=== PATIENT | female | born 1950 | race Caucasian/White ===

== ENCOUNTER 2016-04-22 12:12 | Inpatient (IN) | payer OTHER ==
[2016-04-21 12:43] VITALS: BMI 20.2
[2016-04-22] VITALS (20 sets, daily range): BP systolic 102–149; BP diastolic 53–77; PULSE 61–92; RESP 15–20; Ht 144.8 cm; Wt 60.1 kg
[~2016-04-22] VITALS: Ht 144.8 cm; Wt 60.1 kg
[~2016-04-22 12:12] MED LIST: CEFAZOLIN 1 GM INJ ONE; metroNIDAZOLE 500 MG/100 ML NS IVPB ONE
[2016-04-22] MEDS ORDERED: metroNIDAZOLE 500 MG/NS (PMX) 100 ML IVPB ONE (13:00)
[2016-04-22] MEDS ORDERED: CEFAZOLIN 2 GM/50 ML (PMX) 50 ML IVPB ONE (13:00)
[2016-04-22] MEDS ORDERED: D5-NS + KCL 20 MEQ 1,000 ML IV ONE (13:00)
[2016-04-22] MEDS ORDERED: DOXY25TA PO (14:10)
[2016-04-22] MEDS ORDERED: MIDAZOLAM 1 MG/ML 2 ML INJ ONE (15:13)
--- NOTE | 2016-04-22 15:28 | HP ---
Date/Time of Note Date/Time of Note DATE: 04/22/16 TIME: 15:27 Assessment/Plan VTE Prophylaxis VTE Prophylaxis Intervention: SCD's Lines/Catheters IV C[facility]ter Type [facility]from [facility] Saline Lock HPI/ROS Admit Date/Time Admit Date/Time Apr 22, 2016 at 13:04 Hx of Present Illness Abdiel Ding M.D. [facility] History and Physical Examination Leslie Andrews Apr 21, 2016 Age:65 :1950 Physicians: Vehicle Service Attendant Potato Pancake Frier Oncologist Referring MD: History of the Present Illness: This is a 65 female G3 P 2 Ab 1 with a grade 3 endometrial cancer recently diagnosed by d/c endometrial biopsy. The patient also had fibroids Medical history/ROS: all other systems unremarkable. Surgical history: none Medications: None Flu no, declined, Pneumococcal no, declined Colonoscopy: never Allergies: 03/30/16 No known allergies (situation) Family History: Noncontributory Social History: Noncontributory Review of Systems: Negative except for above noted Physical Examination Vitals (03/30/2016): Weight 138, Height 58.5, BP 130/70, BMI 28.8. General: Alert. HEENT: Pupils are equal, round, reactive to light and accommodation. Neck: Supple with no masses of lymphadenopathy. Breast: Deferred due to recent examination and responsibility of primary care physician. Chest: Clear to auscultation and percussion with no rales, ronchi, or wheeze. Heart: Normal rhythm with no murmur. Abdominal exam: nontender, nondistended, no masses, no ascites. location: N/A Pelvic exam: Uterus enlgd and globular, no masses or cul-de-sac nodularity noted Rectal: confirmatory with pelvic exam. Neurological: Grossly intact Assessment: endomtrial cancer stage to be determined Plan: TLH/BSO LND possible lapartotomy. All risks and benefits of this procedure have been discussed in detail with the patient, as well as alternative treatment strategies and their implications. The patient is aware that there is some possibility of a blood transfusion and its associated risks and benefits. She wishes to proceed and gives her informed consent. Abdiel Ding M.D. PMH/Family/Social Social History Smoking Status: Never smoker Exam/Review of Systems Vital Signs Vitals Vital Signs Date Time Temp Pulse Resp B/P Pulse Ox O2 Delivery O2 Flow Rate FiO2 04/22/16 13:56 98.2 71 16 149/77 95 Room Air Medications Medications Current Medications Potassium Chloride/Dextrose/ Sod Cl (D5-NS + KCl 20 Meq) 1,000 ml @ 100 mls/hr Q10H ONCE IV ; Start 04/22/16 at 13:00; Stop 04/22/16 at 22:59 ABDIEL DING MD Apr 22, 2016 15:28
--- NOTE | 2016-04-22 15:29 | HPN ---
Date/Time of Note Date/Time of Note DATE: 04/22/16 TIME: 15:28 Interval H&P Admission Note Pt. seen H&P reviewed: No system changes ZAINA DING MD Apr 22, 2016 15:28
[2016-04-22] MEDS ORDERED: PROPOFOL 100 ML ONE (15:31)
[2016-04-22] MEDS ORDERED: ROCURONIUM 50 MG INJ ONE ×2 (15:31→18:00)
[2016-04-22] MEDS ORDERED: FENTAnyl 50 MCG/ML VIAL ONE (15:32)
[2016-04-22] MEDS ORDERED: ROPIVACAINE 0.5 % 30 ML VIAL ONE (15:50)
[2016-04-22] MEDS ORDERED: morphine SULFATE/PF (10 MG/10 ML) INJ ONE (15:50)
[2016-04-22] MEDS ORDERED: PHENYLephrine (100 MCG/ML) 5ML SYG ONE ×2 (15:59→17:03)
[2016-04-22] MEDS ORDERED: METHYLENE BLUE 10 MG/ML VIAL ONE (16:28)
[2016-04-22] MEDS ORDERED: THROMBIN 5000 UNIT VIAL ONE (16:28)
[2016-04-22] MEDS ORDERED: HYDROmorphONE (0.2 MG/ML) 10ML SYG IV PRN ×2 (16:30)
[2016-04-22] MEDS ORDERED: NALBUPHINE HCL (10 MG/1 ML) INJ IV PRN (16:30)
[2016-04-22] MEDS ORDERED: ONDANSETRON 4 MG INJ IV PRN ×2 (16:30)
[2016-04-22] MEDS ORDERED: NALOXONE (0.4 MG/ML) INJ IV PRN (16:30)
[2016-04-22] MEDS ORDERED: morphine (1 MG/ML) 10ML SYRINGE IV PRN ×2 (16:30)
[2016-04-22] MEDS ORDERED: METOCLOPRAMIDE 10 MG INJ IV PRN (16:30)
[2016-04-22] MEDS ORDERED: ALBUMIN HUMAN 5% 250 ML IV PRN (16:30)
[2016-04-22] MEDS ORDERED: EPHEDrine SULFATE 50 MG/5 ML SYG IV PRN (16:30)
[2016-04-22] MEDS ORDERED: MEPERIDINE 25 MG INJ IV PRN (16:30)
[2016-04-22] MEDS ORDERED: DIPHENHYDRAMINE 50 MG INJ IV PRN (16:30)
[2016-04-22] MEDS ORDERED: FENTAnyl 50 MCG/ML VIAL IV PRN ×2 (16:30)
[2016-04-22] MEDS ORDERED: DEXAMETHASONE 4 MG/ML 1 ML INJ ONE (17:58)
[2016-04-22] MEDS ORDERED: METOCLOPRAMIDE 10 MG INJ ONE (17:58)
[2016-04-22] MEDS ORDERED: ONDANSETRON 4 MG INJ ONE (17:58)
[2016-04-22] MEDS ORDERED: NEOSTIGMINE 3 MG/3 ML SYRINGE ONE (18:39)
[2016-04-22] MEDS ORDERED: GLYCOPYRROLATE 0.4 MG INJ ONE (18:39)
[2016-04-22] MEDS ORDERED: HETASTARCH 6% NACL 500 ML ONE (18:41)
[2016-04-22] MEDS ORDERED: morphine 2 MG INJ IV PRN (20:30)
[2016-04-22] MEDS: D5-LR + KCL 20 MEQ 1,000 ML IV SCH (22:22)
[2016-04-22] MEDS: CEFAZOLIN 1 GM/50 ML (PMX) 50 ML IVPB SCH (23:58)
[2016-04-23 00:05] VITALS: BP 119/55; PULSE 73; RESP 18
[2016-04-23 05:00] VITALS: BP 105/57; PULSE 75; RESP 17
[2016-04-23 05:12] LABS: ADD SCAN DIFF NO
[2016-04-23 05:28] LABS: HEMATOCRIT 31.2 % (37.0-47.0); HEMOGLOBIN 9.7 g/dl (12.0-16.0); LYMPHOCYTES # 0.7 10^3/ul (0.8-2.9); LYMPHOCYTES % 5.8 % (15.0-51.0); MEAN CORPUSCULAR HEMOGLOBIN 27.6 pg (29.0-33.0); MEAN CORPUSCULAR HGB CONC 31.1 g/dl (32.0-37.0); MEAN CORPUSCULAR VOLUME 88.6 fl (82.0-101.0); MONOCYTE # 0.7 10^3/ul (0.3-0.9); MONOCYTES % 5.8 % (0.0-11.0); NEUTROPHIL # 10.4 10^3/ul (1.6-7.5); NEUTROPHILS % 88.1 % (39.0-77.0); PLATELET COUNT 270 10^3/UL (140-415); RED BLOOD COUNT 3.52 10^6/ul (4.20-5.40); RED CELL DISTRIBUTION WIDTH 13.2 % (11.5-14.5); WHITE BLOOD COUNT 11.8 10^3/ul (4.8-10.8)
[2016-04-23 05:35] LABS: POTASSIUM 4.3 mmol/L (3.5-5.1)
[2016-04-23 05:37] LABS: CREATININE 0.62 mg/dl (0.44-1.00)
[2016-04-23 05:38] LABS: CALCIUM 7.7 mg/dl (8.4-10.2)
[2016-04-23 07:53] VITALS: BP 108/59; RESP 18
[2016-04-23] MEDS: D5-LR + KCL 20 MEQ 1,000 ML IV SCH ×2 (08:00→08:39)
[2016-04-23] MEDS: CEFAZOLIN 1 GM/50 ML (PMX) 50 ML IVPB SCH ×2 (08:34→16:07)
[2016-04-23] MEDS: ONDANSETRON 4 MG INJ IV PRN ×2 (08:39→17:23)
[2016-04-23] MEDS: DIPHENHYDRAMINE 50 MG INJ IV PRN ×2 (08:39→13:38)
--- NOTE | 2016-04-23 11:47 | CONS ---
DATE OF ADMISSION: 04/22/2016 DATE OF CONSULTATION: 04/23/2016 REQUESTING PHYSICIAN: Abdiel Miller MD REASON FOR CONSULTATION: Medical management. HISTORY OF PRESENT ILLNESS: This is a 65-year-old G3, P2, 1, with a grade III endometrial cancer, recent diagnosed by endometrial biopsy. The patient was also found with fibroids. The maría elena ent has been seen and evaluated at [facility] by Dr. Miller, and the mode of treatment was discussed with the patient and after discussing surgical intervention, th e patient had decided to proceed with surgical intervention. Therefore, on 04/22/2016, after discus sing the risks and benefits of the surgery, the patient was taken to OR for laparoscopic salpingo-oo phorectomy and total hysterectomy. The patient tolerated the procedure well and was taken to recove ry room. Medical team was consulted for further management. The patient during the surgery was rob ated with dexamethasone, Dilaudid, and postop patient was treated with cefazolin. At this time, the patient denies having any fever, chills, weight gain, weight loss, anorexia. No chest pain, palpit ations, edema, orthopnea. No change in visual acuity, diplopia, photophobia. Minimal abdominal dis comfort at surgical site. No recent travel history. No sick contact. The other 12-review of syste ms has been found to be negative. PAST MEDICAL HISTORY: 1. Insomnia. 2. Uterine fibroid. 3. Grade III endometrial cancer diagnosed with endometrial biopsy. PAST SURGICAL HISTORY: None. MEDICATIONS: None. FAMILY HISTORY: No family history of cancer, diabetes mellitus or hypertension. SOCIAL HISTORY: Negative x3 for smoking, alcohol, illicit drugs. REVIEW OF SYSTEMS: As above per HPI, otherwise 12-review of systems has been found to be negative. PHYSICAL EXAMINATION: VITAL SIGNS: Temperature 98.1, pulse 69, respirations 18, blood pressure 108/59, oxygen 100% in shona m air. GENERAL APPEARANCE: The patient is lying in bed comfortably without any distress. She is awake, al ert, oriented. She is able to answer my questions properly. Body habitus moderately overweight wit h BMI of 28.7. EYES AND ENT: Conjunctivae and lids are normal. Pupils are normal. Extraocular normal. Hearing g rossly normal. Lips, teeth and gums normal. Oral mucosa mildly dry. NECK: Supple. Trachea midline. No lymphadenopathy. RESPIRATORY: Effort is normal. Clear to auscultation bilaterally. CARDIOVASCULAR: Normal S1, S2. Regular rhythm and rate. No murmur, no bruits, no edema. Peripher al pulses, radial pulses palpable. Capillary refill is normal. CHEST: Normal expansion of thorax during inspiration. ABDOMEN: Soft, nontender. Surgical site is dry and clean. No drain. No evidence of hematoma or b leeding. GENITOURINARY: Deferred. MUSCULOSKELETAL: Upper and lower extremities within normal limits. Full range of motion. Strength 5/5 in both upper and lower extremities. NEUROLOGIC: Cranial nerves II through XII are grossly intact. PSYCHIATRIC: Normal judgment and insight. Alert and oriented x3. Mood and affect is normal. LABORATORY DATA: WBC 11.8, hemoglobin 9.7, hematocrit 31.2, platelets 270. Sodium 141, potassium 4 .3, chloride 108, bicarbonate 27, BUN 11, creatinine 0.62, glucose 151, calcium 7.7. ASSESSMENT AND PLAN: 1. Grade III endometrial cancer. The patient is status post laparoscopic total hysterectomy and bi lateral salpingo-oophorectomy by Dr. Miller. We will followup the pathology. Continue pain medic ation. Continue cefazolin. Diet to be advanced as per his recommendation. PT, OT evaluate and rob at. 2. Leukocytosis, likely postoperative, reactive. Continue cefazolin. 3. Deep venous thrombosis prophylaxis, on sequential compression devices. We will continue to monitor patient closely. Further recommendations, management and treatment as p er clinical course. Total amount of time was spent for evaluation of patient and consultation note 40 minutes. Dictated By: SHARATH ARCINIEGA MD PN/NTS Conf#: [id number] DID#: [id number]
[2016-04-23] MEDS: traMADol 50 MG TAB PO PRN ×2 (13:39→21:12)
[2016-04-23 19:48] VITALS: BP 129/65; RESP 18
--- NOTE | 2016-04-23 21:52 | OPR ---
Date/Time of Note Date/Time of Note DATE: 04/23/16 TIME: 21:51 Operative Report Free Text/Dictation 4 OPERATIVE REPORT [facility] Name: Leslie Andrews Medical Date: 04/22/16 Preoperative Diagnosis: 1-Endometrial cancer grade 3 Postoperative Diagnosis: 1-Endometrial cancer with final pathology pending 2- Fibroid 3- Ureteral stricture Procedures: 1- Total laparoscopic hysterectomy with bilateral salpingoophorectomy 2- Bilateral ureteral dissection with repositioning 3- Laparoscopic pelvic and aortic lymph node dissection 4- Retroperitoneal uterine artery ligation adjacent to hypogastric artery Surgeon: Dr. Ding [employer] Control Room Operator: Dr. Bateman Anaesthesia: General with regional Indications for Procedure: This 65- year old patient had a grade 3 endometrial cancer without evidence of metastatic disease preoperatively and after discussions of options with risks and benefits it was determined that a laparoscopic hysterectomy with bilateral salpingoophorectomy and pelvic/aortic lymph node dissection would be completed for the purposes of treatment and possibly planning additional adjuvant therapy. The pelvic and LND was performed in lieu of final grading not being equivalent to preoperative D&C grade 18-25% of the time and frozen section not being more that 80% reliable in determining grade and depth of invasion; therefore complete staging is performed to Name: Leslie Andrews Medical determine postoperative management unless there is a significant contraindication. Intraoperative Findings and Summary of Procedure: After placing the Trocars and exploration we noted uterine enlargement with a large posterior lower uterine segment fibroid, with significant adhesions of the adnexia to the sidewalls. The TLH/BSO was then performed without incident but required a ureteral dissection due to anatomic issues of the fibroid and adnexia adherent to the sidewalls and uterine enlargement due to fibroid with retroperitoneal uterine artery ligation adjacent to hypogastric artery for required hemostasis, with the laparoscopic LND being subsequently performed with a finding of grossly negative nodes pathology pending. The patient will stay a minimum of one night to observe for recovery of from anesthesia and confirm stable hemoglobin and hematocrit with the necessity of confirmation of some GI recovery and probably need an addition night as well. Findings and Procedure: After being prepped and draped in the usual manner an EEA sizer and pneumo- occluder was inserted vaginally. A 5-millimeter trocar was then placed periumbilically without incident. Subsequently, we insufflated and placed two 12- millimeter trocars laterally and a 12-millimeter trocar suprapubically, as well as an additional 5-mm trocar cephlad to the umbilicus. At this time multiple pelvic adhesions were lysed with sharp dissection and the Omni if not adjacent to serosa. Subsequently we explored and noted a large uterus with a significant posterior lower uterine segment myoma, with adnexia adherent to the sidewalls due to apparent inflammation and old scar tissue. Initially the right round ligament was cauterized and transected with the Thunderbeat and the retroperitoneal space further opened parallel to the IP ligament an laterally with the same devise. The right ureter was identified and due to the aforementioned distortion from adherent adnexia and the myoma, was dissected laterally with the Omni and the endo-dissector. After lateralizing the ureter the uterine artery was identified and clipped Name: Leslie [facility] adjacent to the hypogastric artery due to the uterine enlargement and hypervascularity lateral to the ureter. Hence, a space was developed the broad ligament and the right IP ligament was cauterized and transected with a Thunderbeat after which the uterus was retracted medially and the bladder flap was partly developed with the Gyrus bipolar cutting forceps and the Omni. We then used a 10-mm ratcheted endo-grasper placed through the 12-mm suprapubic trocar to manipulate the uterus and with the EEA sizer uterus was retracted and left round ligament was cauterized and transected with the Thunderbeat and the retroperitoneal space further opened parallel to the IP ligament an laterally with the same devise. The left ureter was identified and due to the aforementioned distortion was dissected laterally with the Omni and the endo- dissector as done contralaterally. After lateralizing with the Thunderbeat adjacent to the hypogastric artery due to the uterine enlargement and hypervascularity lateral to the ureter. Hence, a space was developed in the broad ligament and the left IP ligament was cauterized and transected with a Thunderbeat after which the uterus was retracted medially, allowing development or the bladder flap uneventfully with a Thunderbeat and blunt dissection. Subsequently, the right uterine artery was transected with a Thunderbeat perpendicular to the distal lower uterine segment and the Cardinal ligament and utero-sacral ligament were both transected with an Omni and Thunderbeat parallel to the lower uterine segment and cervix. An identical series of steps were taken on the left side. The anterior and posterior colpotomies were accomplished with a Thunderbeat anteriorly and posteriorly, and continued around the sides as the specimen was removed through the vagina uneventfully. The vagina was closed with interrupted 0 Vicryl suture and continuous 2-0 v- lock suture. At this time the frozen section returned grade 2-3 uncertain depth of invasion < 50% and the pelvic and aortic LND were completed after confirming hemostasis. Initially a fan retractor was used for exposure and secured to the James arm and all lymph node tissue adjacent to the right external iliac artery and vein, hypogastric artery and vein, as well as obturator fossa were removed with sharp and blunt dissection, using the Thunderbeat or Gyrus bipolar Omni for hemostasis and lymphostasis. The ashvin tissue was grasped and Name: [facility] subsequently placed under tractions with the Omni and the Thunderbeat then being used for the hemostasis and lymphostasis in the process of removal. The dissection was continued to include ashvin tissue adjacent to the common iliac vessels. The obturator nerve was identified and all adjacent ashvin tissue removed with blunt dissection, with the Thunderbeat or Gyrus bipolar Omni used for lymphostasis and hemostasis as needed. The fan retractors were adjusted in that a suprapubically placed fan retracted the broad ligament and ureter with ileum while the right lateral trocar was used for a fan to retract the cecum and ascending colon allowing any ashvin tissue adjacent to the vena cava, as well as aorto-caval nodes to be removed using identical technique. Singeing Torch Operator vessels were addressed with the Thunderbeat or Gyrus bipolar Omni. At this time we placed the fan retractors for contralateral exposure. Subsequently, all lymph node tissue adjacent to the left external iliac artery and vein, hypogastric artery and vein, as well as obturator fossa were removed with sharp and blunt dissection, the Thunderbeat or Gyrus bipolar Omni for hemostasis and lymphostasis, with a technique identical to the right side. The dissection was continued to include ashvin tissue adjacent to the common iliac vessels. Subsequently, the fan retractors were adjusted and any ashvin tissue adjacent to the aorta were dissected using similar technique. After irrigating and assuring hemostasis the 12 millimeter trocars were removed and the fascia was closed with 0-vicryl using an endo-close devise. The gas was removed and the skin of all sites then closed with subcutaneous 3-0 Vicryl suture an interrupted 4-0 Plain Gut . The EBL was 50cc and the patient tolerated the procedure well and left the OR in good condition. Abdiel Ding M.D. ABDIEL DING MD Apr 23, 2016 21:52
--- NOTE | 2016-04-23 21:55 | PN ---
Date/Time of Note Date/Time of Note DATE: 04/23/16 TIME: 21:52 Assessment/Plan VTE Prophylaxis VTE Prophylaxis Intervention: SCD's Lines/Catheters IV Catheter Type (from Nrs): Peripheral IV Urinary Cath still in place: Yes Assessment/Plan Chief Complaint/Hosp Course endometrial ca Problems: Assessment/Plan A- doing well P- adv diet and d/c Kirk Subjective 24 Hr Interval Summary Free Text/Dictation S- minimal pain, OOB and + flatus O- resp- clear cvs- NSR Abd- soft NT Ext- NT no edema A- doing well P- adv diet and d/c Kirk Exam/Review of Systems Vital Signs Vitals Vital Signs Date Time Temp Pulse Resp B/P Pulse Ox O2 Delivery O2 Flow Rate FiO2 04/23/16 19:48 98.6 104 18 129/65 97 04/23/16 05:00 Nasal Cannula 2.0 Intake and Output 04/22/16 04/22/16 04/23/16 15:00 23:00 07:00 Intake Total 3050 ml 1100 ml Output Total 390 ml 550 ml Balance 2660 ml 550 ml Results Result Diagram: 04/23/16 0415 04/23/16 0415 Results 24 hrs Laboratory Tests Test 04/23/16 04:15 Anion Gap 10 Basophils # 0.0 Basophils % 0.0 Blood Urea Nitrogen 11 Calcium Level 7.7 L Carbon Dioxide Level 27 Chloride Level 108 Creatinine 0.62 Eosinophils # 0.0 Eosinophils % 0.0 Glucose Level 151 Hematocrit 31.2 L Hemoglobin 9.7 L Lymphocytes # 0.7 L Lymphocytes % 5.8 L Mean Corpuscular Hemoglobin 27.6 L Mean Corpuscular Hemoglobin Concent 31.1 L Mean Corpuscular Volume 88.6 Mean Platelet Volume 10.0 Monocytes # 0.7 Monocytes % 5.8 Neutrophils # 10.4 H Neutrophils % 88.1 H Nucleated Red Blood Cells # 0.0 Nucleated Red Blood Cells % 0.0 Platelet Count 270 Potassium Level 4.3 Red Blood Count 3.52 L Red Cell Distribution Width 13.2 Sodium Level 141 White Blood Count 11.8 H Medications Medications Current Medications Diphenhydramine HCl (Benadryl) 25 mg Q4H PRN IV PRURITUS Last administered on t 13:38; Admin Dose 25 MG; Start 04/22/16 at 16:30 Nalbuphine HCl (Nubain) 10 mg Q4H PRN IV PRURITUS; Start 04/22/16 at 16:30 Naloxone HCl (Narcan) 0.2 mg Q2M PRN IV FOR RESP RATE 8 OR LESS; Start 04/22/16 at 16:30 Ondansetron HCl (Zofran Inj) 4 mg Q6H PRN IV NAUSEA AND/OR VOMITING Last administered on 04/23/16 17:23; Admin Dose 4 MG; Start 04/22/16 at 20:30 Tramadol HCl (Ultram) 50 mg Q6H PRN PO PAIN LEVEL 1-5 Last administered on 21:12; Admin Dose 50 MG; Start 04/22/16 at 20:30 Morphine Sulfate 2 mg 2 mg Q3H PRN IV PAIN LEVEL 6-10; Start 04/22/16 at 20:30 Potassium Cl/ Dextrose/Lact Ringer's (D5-Lr + KCl 20 Meq) 1,000 ml @ 60 mls/hr [id number] IV Last administered on 04/23/16 08:39; Admin Dose 60 MLS/HR; Start 04/23/16 at 08:00 ZAINA DING MD Apr 23, 2016 21:55
[2016-04-24] MEDS: D5-LR + KCL 20 MEQ 1,000 ML IV SCH ×2 (01:50→20:00)
[2016-04-24] MEDS: traMADol 50 MG TAB PO PRN ×4 (02:55→21:05)
[2016-04-24 05:48] LABS: ADD SCAN DIFF NO
[2016-04-24 05:54] LABS: BASOPHILS % 0.1 % (0.0-2.0); EOSINOPHILS % 0.2 % (0.0-7.0); HEMATOCRIT 31.3 % (37.0-47.0); HEMOGLOBIN 9.9 g/dl (12.0-16.0); LYMPHOCYTES # 1.7 10^3/ul (0.8-2.9); MEAN CORPUSCULAR HEMOGLOBIN 27.9 pg (29.0-33.0); MEAN CORPUSCULAR HGB CONC 31.6 g/dl (32.0-37.0); MEAN CORPUSCULAR VOLUME 88.2 fl (82.0-101.0); MONOCYTE # 0.9 10^3/ul (0.3-0.9); MONOCYTES % 9.3 % (0.0-11.0); NEUTROPHIL # 7.2 10^3/ul (1.6-7.5); PLATELET COUNT 263 10^3/UL (140-415); RED BLOOD COUNT 3.55 10^6/ul (4.20-5.40); RED CELL DISTRIBUTION WIDTH 13.4 % (11.5-14.5); WHITE BLOOD COUNT 9.9 10^3/ul (4.8-10.8)
[2016-04-24 06:09] LABS: POTASSIUM 3.8 mmol/L (3.5-5.1)
[2016-04-24 06:11] LABS: CREATININE 0.53 mg/dl (0.44-1.00)
[2016-04-24 06:12] LABS: CALCIUM 7.8 mg/dl (8.4-10.2); MAGNESIUM 1.9 mg/dl (1.7-2.5)
[2016-04-24 07:00] VITALS: BP 142/71; RESP 20
--- NOTE | 2016-04-24 09:40 | OPPN ---
Date/Time of Note Date/Time of Note DATE: 04/24/16 TIME: 09:39 Post-Anesthesia Notes Post-Anesthesia Note Activity: WNL Respiratory function: WNL Cardiovascular function: WNL Mental status: Baseline Pain reasonably controlled: Yes Hydration appropriate: Yes Nausea/Vomiting absent: No Pt recovered from regional: Yes DATNE MUJICA MD Apr 24, 2016 09:40
--- NOTE | 2016-04-24 11:23 | PDOCDIS ---
Discharge Instructions CONDITION Patient Condition: Stable HOME CARE INSTRUCTIONS: Diet Instructions: Regular ACTIVITY: Activity Restrictions: Slowly Increase Activity Rest between Activity No Sexual Activity Do not Drive Avoid Heavy Housework Bathing Restrictions: Tub BathActivity Restrictions Comment: Do not lift any objects > 15 lbs x 4 weeks FOLLOW UP/APPOINTMENTS Appointments Follow up with PCP in one week Follow up with Dr. Miller in 2 weeks SHARATH ARCINIEGA MD Apr 24, 2016 11:22
[2016-04-24] MEDS ORDERED: MYL80 PO (11:25)
[2016-04-24] MEDS ORDERED: DOCU-216 PO (11:25)
[2016-04-24] MEDS ORDERED: FAMO20TA18 PO (11:25)
[2016-04-24] MEDS ORDERED: TRAM50TA2 PO (11:25)
[2016-04-24] MEDS: FAMOTIDINE 20 MG TAB PO SCH (11:40)
[2016-04-24] MEDS: DOCUSATE SODIUM 100 MG CAP PO PRN (11:40)
--- NOTE | 2016-04-24 12:17 | DS ---
DATE OF ADMISSION: 04/22/2016 DATE OF DISCHARGE: 04/24/2016 ADMITTING PHYSICIAN: Abdiel Miller MD DIAGNOSES: 1. Endometrial cancer with fibroid. The patient is status post total laparoscopic hysterectomy and bilateral salpingo-oophorectomy and laparoscopic pelvic and aortic lymph node dissection. Pathology pending. Follow with Dr. Miller for the result of the pathology. 2. Ureteral stricture. The patient is status post bilateral ureteral dissection and repositioning and retroperitoneal uterine artery ligation just at the hypogastric artery. 3. Insomnia, stable. 4. Anemia, stable. MEDICATIONS: 1. Colace. 2. Sleep aid. 3. Famotidine. 4. Simethicone. 5. Tramadol. ALLERGIES: NO KNOWN DRUG ALLERGIES. DISPOSITION: Home. FOLLOWUP: Follow with Dr. Miller as outpatient. Blood culture no growth ____ urine culture. LABORATORIES: Sodium 139, potassium 3.8, chloride 104, bicarbonate 29, BUN 5, creatinine 0.53, gluc ose 106, calcium 7.8, magnesium 1.9. WBC 9.9, hemoglobin 9.9, hematocrit 31.3, platelets 263. HOSPITAL COURSE: This is a 65-year-old G3, P2, 1 with high-grade 3 endometrial cancer, rec ent diagnosis ____ biopsy, also found to have fibroid. The patient was seen and evaluated at [facility] with Dr. Miller, and after discussing the mode of treatmen t and discussing surgical intervention, the patient decided to proceed with surgical intervention on 04/22/2016. After discussing the risk and benefits of the surgery, the patient was taken to OR for laparoscopic salpingo-oophorectomy and total hysterectomy. Patient tolerated the procedure well an d was taken to recovery room. During the surgery, the patient was treated with cefazolin and was co ntinued during the course of hospitalization. The patient was admitted to oncology floor. Her diet was advanced as tolerated, was continued on IV fluid, pain medication. The surgical site is dry an d clean. The patient has been able to ambulate without any difficulty. There is no bleeding at the site of the surgery. Patient is complaining of having mild abdominal discomfort which is at the rush rgical site, but there is no bleeding at the surgical site. She has had some bloating, she was star luis a on simethicone. She has had flatus. At this time, patient is from a medical standpoint stable to be discharged home waiting for surgical evaluation by Dr. Miller prior to discharge. Dictated By: SHARATH ARCINIEGA MD PN/NTS Conf#: [id number] DID#: [id number]
[2016-04-24 14:30] VITALS: BP 157/70; PULSE 66; RESP 20
[2016-04-24 19:39] VITALS: BP 141/66; RESP 19
--- NOTE | 2016-04-24 21:24 | PN ---
Date/Time of Note Date/Time of Note DATE: 04/24/16 TIME: 21:22 Assessment/Plan VTE Prophylaxis VTE Prophylaxis Intervention: SCD's Lines/Catheters IV Catheter Type (from Nrsg): Peripheral IV Urinary Cath still in place: Yes Assessment/Plan Chief Complaint/Hosp Course endometrial ca Problems: Assessment/Plan A/P- doing reasonable but should discharge a.m. due to some gas pain and poor intake; mobilize Subjective 24 Hr Interval Summary Free Text/Dictation S- minimal pain, OOB and + flatus but some gas pains and ate minimal today O- resp- clear cvs- NSR Abd- soft NT Ext- NT no edema A/P- doing reasonable but should discharge a.m. due to some gas pain and poor intake; mobilize Exam/Review of Systems Vital Signs Vitals Vital Signs Date Time Temp Pulse Resp B/P Pulse Ox O2 Delivery O2 Flow Rate FiO2 04/24/16 19:39 98.4 73 19 141/66 100 04/24/16 14:30 Room Air 04/23/16 05:00 2.0 Intake and Output 04/23/16 04/23/16 04/24/16 14:59 22:59 06:59 Intake Total 50 ml 1650 ml 1000 ml Output Total 960 ml 1800 ml Balance 50 ml 690 ml -800 ml Results Result Diagram: 04/24/16 0418 04/24/16 0418 Results 24 hrs Laboratory Tests Test 04/24/16 04:18 Anion Gap 10 Basophils # 0.0 Basophils % 0.1 Blood Urea Nitrogen 5 L Calcium Level 7.8 L Carbon Dioxide Level 29 Chloride Level 104 Creatinine 0.53 Eosinophils # 0.0 Eosinophils % 0.2 Glucose Level 106 # Hematocrit 31.3 L Hemoglobin 9.9 L Lymphocytes # 1.7 Lymphocytes % 17.0 Magnesium Level 1.9 Mean Corpuscular Hemoglobin 27.9 L Mean Corpuscular Hemoglobin Concent 31.6 L Mean Corpuscular Volume 88.2 Mean Platelet Volume 10.0 Monocytes # 0.9 Monocytes % 9.3 Neutrophils # 7.2 Neutrophils % 73.0 Nucleated Red Blood Cells # 0.0 Nucleated Red Blood Cells % 0.0 Platelet Count 263 Potassium Level 3.8 Red Blood Count 3.55 L Red Cell Distribution Width 13.4 Sodium Level 139 White Blood Count 9.9 Medications Medications Current Medications Diphenhydramine HCl (Benadryl) 25 mg Q4H PRN IV PRURITUS Last administered on 13:38; Admin Dose 25 MG; Start 04/22/16 at 16:30 Nalbuphine HCl (Nubain) 10 mg Q4H PRN IV PRURITUS; Start 04/22/16 at 16:30 Naloxone HCl (Narcan) 0.2 mg Q2M PRN IV FOR RESP RATE 8 OR LESS; Start 04/22/16 at 16:30 Ondansetron HCl (Zofran Inj) 4 mg Q6H PRN IV NAUSEA AND/OR VOMITING Last administered on 04/23/16 17:23; Admin Dose 4 MG; Start 04/22/16 at 20:30 Tramadol HCl 50 mg 50 mg Q6H PRN PO PAIN LEVEL 1-5 Last administered on 21:05; Admin Dose 50 MG; Start 04/22/16 at 20:30 Potassium Cl/ Dextrose/Lact Ringer's (D5-Lr + KCl 20 Meq) 1,000 ml @ 50 mls/hr Q20H IV Last administered on 04/24/16 20:00; Admin Dose 50 MLS/HR; Start at 08:00 Simethicone (Mylicon) 80 mg Q6H PRN PO DISTENSION/GAS/BLOATING Last administered on 04/24/16 18:31; Admin Dose 80 MG; Start 04/24/16 at 11:30 Docusate Sodium (Colace) 100 mg DAILY PRN PO CONSTIPATION Last administered on 04/24/16 11:40; Admin Dose 100 MG; Start 04/24/16 at 11:30 Famotidine (Pepcid) 20 mg DAILY PO Last administered on 04/24/16 11:40; Admin Dose 20 MG; Start 04/24/16 at 12:00 ZAINA DING MD Apr 24, 2016 21:24
[2016-04-25] MEDS: DOCUSATE SODIUM 100 MG CAP PO PRN (02:21)
[2016-04-25 05:11] LABS: ADD SCAN DIFF NO; BASOPHILS % 0.2 % (0.0-2.0); EOSINOPHILS % 0.4 % (0.0-7.0); HEMATOCRIT 33.7 % (37.0-47.0); HEMOGLOBIN 10.6 g/dl (12.0-16.0); LYMPHOCYTES # 1.2 10^3/ul (0.8-2.9); LYMPHOCYTES % 12.2 % (15.0-51.0); MEAN CORPUSCULAR HEMOGLOBIN 27.4 pg (29.0-33.0); MEAN CORPUSCULAR HGB CONC 31.5 g/dl (32.0-37.0); MEAN CORPUSCULAR VOLUME 87.1 fl (82.0-101.0); MEAN PLATELET VOLUME 9.9 fl (7.4-10.4); MONOCYTE # 0.8 10^3/ul (0.3-0.9); MONOCYTES % 7.4 % (0.0-11.0); NEUTROPHILS % 79.2 % (39.0-77.0); PLATELET COUNT 287 10^3/UL (140-415); RED BLOOD COUNT 3.87 10^6/ul (4.20-5.40); RED CELL DISTRIBUTION WIDTH 13.1 % (11.5-14.5); WHITE BLOOD COUNT 10.1 10^3/ul (4.8-10.8)
[2016-04-25] MEDS: ONDANSETRON 4 MG INJ IV PRN ×2 (05:29)
[2016-04-25 05:31] LABS: POTASSIUM 4.4 mmol/L (3.5-5.1)
[2016-04-25 05:34] LABS: CREATININE 0.51 mg/dl (0.44-1.00)
[2016-04-25] MEDS ORDERED: CEPASTAT LOZENGE MT PRN (06:30)
[2016-04-25 08:02] VITALS: BP 137/71; RESP 20
[2016-04-25] MEDS: FAMOTIDINE 20 MG TAB PO SCH (08:43)
[2016-04-25] MEDS: traMADol 50 MG TAB PO PRN (09:59)
--- NOTE | 2016-04-25 10:56 | PN ---
Date/Time of Note Date/Time of Note DATE: 04/25/16 TIME: 10:54 Assessment/Plan VTE Prophylaxis VTE Prophylaxis Intervention: SCD's Lines/Catheters IV C[facility]ter Type [facility]from [facility] Saline Lock Urinary Cath still in place: No Assessment/Plan Chief Complaint/Hosp Course ASSESSMENT AND PLAN: 1. Grade III endometrial cancer. The patient is status post laparoscopic total hysterectomy and bilateral salpingo-oophorectomy by Dr. Miller. [facility] will followup the pathology . Continue pain medication. 2. Leukocytosis, likely postoperative, reactive. Discharged on Keflex 3. Constipation, continue Colace Patient is medically stable to be discharged home with a close follow up with [facility] as outpatient Diet: Regular Activity: Light activity 4 weeks do not lift anything heavier than 15 pounds 4 weeks Problems: Subjective 24 Hr Interval Summary Free Text/Dictation Patient denies any chest pain or shortness of breath Her discharge was placed on hold secondary to abdominal distention and constipation Patient had bowel movement yesterday afternoon and denies of any abdominal discomfort this morning Tolerating oral intake Exam/Review of Systems Vital Signs Vitals Vital Signs Date Time Temp Pulse Resp B/P Pulse Ox O2 Delivery O2 Flow Rate FiO2 04/25/16 08:02 98.5 68 20 137/71 96 04/24/16 14:30 Room Air 04/23/16 05:00 2.0 Intake and Output 04/24/16 04/24/16 04/25/16 15:00 23:00 07:00 Intake Total 850 ml 1250 ml Output Total 1200 ml Balance 850 ml 50 ml Exam General: The patient is well-developed, Not in acute distress. HEENT: Atraumatic, normocephalic. The pupils are equal and round . Neck: Supple with full range of motion. Chest: Normal expansion of the thorax during inspiration Lungs: Clear to auscultation bilaterally Heart: Normal S1-S2, Regular rhythm and rate. Abdomen: Soft , nontender, nondistended , bowel sounds are present. Surgical site is dry and clean Extremities: Normal to inspection, no edema no cyanosis Neurologic: Normal mental status,The patient is awake, alert and oriented . Results Result Diagram: 04/25/16 0426 04/25/16 0426 Results 24 hrs Laboratory Tests Test 04/25/16 04:26 Anion Gap 10 Basophils # 0.0 Basophils % 0.2 Blood Urea Nitrogen 5 L Calcium Level 8.0 L Carbon Dioxide Level 29 Chloride Level 102 Creatinine 0.51 Eosinophils # 0.0 Eosinophils % 0.4 Glucose Level 126 Hematocrit 33.7 L Hemoglobin 10.6 L Lymphocytes # 1.2 Lymphocytes % 12.2 L Mean Corpuscular Hemoglobin 27.4 L Mean Corpuscular Hemoglobin Concent 31.5 L Mean Corpuscular Volume 87.1 Mean Platelet Volume 9.9 Monocytes # 0.8 Monocytes % 7.4 Neutrophils # 8.0 H Neutrophils % 79.2 H Nucleated Red Blood Cells # 0.0 Nucleated Red Blood Cells % 0.0 Platelet Count 287 Potassium Level 4.4 Red Blood Count 3.87 L Red Cell Distribution Width 13.1 Sodium Level 137 White Blood Count 10.1 Medications Medications Current Medications Diphenhydramine HCl (Benadryl) 25 mg Q4H PRN IV PRURITUS Last administered on 13:38; Admin Dose 25 MG; Start 04/22/16 at 16:30 Nalbuphine HCl (Nubain) 10 mg Q4H PRN IV PRURITUS; Start 04/22/16 at 16:30 Naloxone HCl (Narcan) 0.2 mg Q2M PRN IV FOR RESP RATE 8 OR LESS; Start 04/22/16 at 16:30 Ondansetron HCl (Zofran Inj) 4 mg Q6H PRN IV NAUSEA AND/OR VOMITING Last administered on 04/25/16 05:29; Admin Dose 4 MG; Start 04/22/16 at 20:30 Tramadol HCl 50 mg 50 mg Q6H PRN PO PAIN LEVEL 1-5 Last administered on 09:59; Admin Dose 50 MG; Start 04/22/16 at 20:30 Potassium Cl/ Dextrose/Lact Ringer's (D5-Lr + KCl 20 Meq) 1,000 ml @ 40 mls/hr Q24H IV Last administered on 04/24/16 20:00; Admin Dose 50 MLS/HR; Start at 08:00 Simethicone (Mylicon) 80 mg Q6H PRN PO DISTENSION/GAS/BLOATING Last administered on 04/25/16 08:43; Admin Dose 80 MG; Start 04/24/16 at 11:30 Docusate Sodium (Colace) 100 mg DAILY PRN PO CONSTIPATION Last administered on 04/25/16 02:21; Admin Dose 100 MG; Start 04/24/16 at 11:30 Famotidine (Pepcid) 20 mg DAILY PO Last administered on 04/25/16 08:43; Admin Dose 20 MG; Start 04/24/16 at 12:00 Phenol (Cepastat Lozenge) 1 lozenge Q1H PRN MT SORE THROAT Last administered on 04/25/16 06:37; Admin Dose 1 LOZENGE; Start 04/25/16 at 06:30 SHARATH ARCINIEGA MD Apr 25, 2016 10:56
== END 2016-04-25 10:55 | disposition home or self-care (01) | DRG 735 ==
LOC: REC 13:04 → EDSTATUS 15:00 → MS1 20:51
PROC: 07TC4ZZ Resection of Pelvis Lymphatic, Percutaneous Endoscopic Approach (ICD-10-PCS; 2016-04-22)
PROC: 0UTC8ZZ Resection of Cervix, Via Natural or Artificial Opening Endoscopic (ICD-10-PCS; 2016-04-22)
PROC: 0UT78ZZ Resection of Bilateral Fallopian Tubes, Via Natural or Artificial Opening Endoscopic (ICD-10-PCS; 2016-04-22)
PROC: 0UT28ZZ Resection of Bilateral Ovaries, Via Natural or Artificial Opening Endoscopic (ICD-10-PCS; 2016-04-22)
PROC: 07BD4ZX Excision of Aortic Lymphatic, Percutaneous Endoscopic Approach, Diagnostic (ICD-10-PCS; 2016-04-22)
PROC: 0TS84ZZ Reposition Bilateral Ureters, Percutaneous Endoscopic Approach (ICD-10-PCS; 2016-04-22)
PROC: 0UT98ZZ Resection of Uterus, Via Natural or Artificial Opening Endoscopic (ICD-10-PCS; principal; 2016-04-22 15:00)
DX: C54.1 Malignant neoplasm of endometrium (principal); D25.9 Leiomyoma of uterus, unspecified; Q62.62 Displacement of ureter; G47.00 Insomnia, unspecified; D64.9 Anemia, unspecified; K59.00 Constipation, unspecified
CPT/HCPCS: 80048; 83735; 85025; 86850; 86900; 86901; 86920; 87086; 88104; 88305; 88307; 88331; J0690; J1100; J1200; J2250; J2274; J2370; J2405; J2710; J2765; J2795; J3010; J3480